=== PATIENT | female | born 1965 | race Caucasian/White ===

== ENCOUNTER 2020-05-06 08:21 | Outpatient (CLI) | payer BC ==
--- NOTE | 2020-05-06 10:48 | MMO ---
Left Breast MAMMO Unilat Diag DDI LT+SUSAN. CLINICAL HISTORY: Patient is 55 years old and is seen for diagnostic exam. The patient has the following family history of breast cancer: mother, at age 50. The patient has no personal history of cancer. VIEWS: The views performed were: left craniocaudal with tomosynthesis; left mediolateral oblique with tomosynthesis; and left mediolateral with tomosynthesis. FILMS COMPARED: The present examination has been compared to prior imaging studies performed at [facility] on 12/21/2011, at [facility] on 05/06/2020, and at [facility] on 10/06/2019 and 10/07/2019. This study has been interpreted with the assistance of computer-aided detection. MAMMOGRAM FINDINGS: The breast is extremely dense, which may lower the sensitivity of mammography. There is a mass measuring 5 millimeters seen in the upper region of the left breast. This is stable and probably benign. Two hypoechoic lesions were noted on prior ultrasound of left breast and interpreted as probably benign. Those lesions are stable on focused left US performed at this time. They are at the 12 and 1 o'clock positions respectively and do not definetely correlate with the mammographic finding. IMPRESSION: MASS IN THE LEFT BREAST IS PROBABLY BENIGN. FOLLOW-UP IN 6 MONTHS IS RECOMMENDED. THE RESULTS OF THIS EXAM WERE SENT TO THE PATIENT. ACR BI-RADS Category 3 - Probably benign finding - short interval follow-up suggested. [facility] will notify the patient of the need for additional imaging services. In six months, a focused left breast ultrasound and bilateral diagnostic mammogram. MAMMOGRAPHY NOTE: 1. A negative mammogram report should not delay a biopsy if a dominant of clinically suspicious mass is present. 2. Approximately 10% to 15% of breast cancers are not detected by mammography. 3. Adenosis and dense breasts may obscure an underlying neoplasm. Reported by: VINH MONROY MD Electonically Signed: [id number]
--- NOTE | 2020-05-06 12:58 | ULT ---
FOCUSED ULTRASOUND OF THE LEFT BREAST 05/06/2020. COMPARISON: 10/07/[address] [facility] in [place]. HISTORY: Reevaluate 2 hypoechoic probably benign lesions seen on outside imaging. FINDINGS: Focused ultrasound of the left breast at the 12 o'clock and 1 o'clock position performed. It is noted that the breast parenchyma is markedly dense. At the 1 o'clock position of the left [address] there is a hypoechoic parallel 4 x 9 mm lesion which does not appear significantly changed when co mpared to the prior exam. In addition, there is a vague area of decreased echogenicity which could r epresent an additional small solid mass at the 12 o'clock position. It is less conspicuous than on t he prior ultrasound. Of note, this is in an area of the breast where the patient reports a tiny nodu le has been present on self examination for years. This lesion measures approximately 5 x 4 mm. IMPRESSION: BIRADS 3: Probably benign findings. Two hypoechoic lesions are noted within the left breast as detai led above, which do not appear significantly changed when compared to the prior exam. The patient al so underwent a diagnostic mammogram on 05/06/2020 which demonstrates stability when compared to prior mammography performed 10/07/2019. Results of the study and recommendation for a followup ultrasound of the left breast as well as a felipe ateral diagnostic mammogram in 6 months discussed with the patient at the time of interpretation. CODE CR
== END 2020-05-06 08:22 | disposition home or self-care (01) ==
LOC: BICMAMMO 08:21
PROVIDERS: ATTEND Physician Assistant
DX: R92.8 Other abnormal and inconclusive findings on diagnostic imaging of breast (principal); N63.20 Unspecified lump in the left breast, unspecified quadrant; N64.9 Disorder of breast, unspecified
CPT/HCPCS: G0279

== ENCOUNTER 2020-10-27 14:40 | Outpatient (CLI) | payer BC ==
--- NOTE | 2020-10-27 15:45 | MMO ---
Bilateral MAMMO Bilat Diag DDI+SUSAN. CLINICAL HISTORY: Patient is 55 years old and is seen for follow-up at short-interval from prior study. The patient has the following family history of breast cancer: mother, at age 50. The patient has no personal history of cancer. VIEWS: The views performed were: bilateral craniocaudal with tomosynthesis; bilateral mediolateral oblique with tomosynthesis; and bilateral mediolateral with tomosynthesis. FILMS COMPARED: The present examination has been compared to prior imaging studies performed at [facility] on 05/06/2020 and 10/27/2020, and at [facility] on 10/07/2019. This study has been interpreted with the assistance of computer-aided detection. MAMMOGRAM FINDINGS: The breasts are extremely dense, which may lower the sensitivity of mammography. The 5mm left upper breast mass is stable and probably benign. The hypoechoic lesions on US of the left breast at 12:00 and 1:00 positions are stable and probably benign and do not definitely correlate with the mammographic finding. In the right breast, there are no suspicious masses, calcifications or areas of architectural distortion. IMPRESSION: FINDING IN THE LEFT BREAST IS PROBABLY BENIGN. FOLLOW-UP IN 6 MONTHS IS RECOMMENDED. THE RESULTS OF THIS EXAM WERE SENT TO THE PATIENT. ACR BI-RADS Category 3 - Probably benign finding - short interval follow-up suggested. [facility] will notify the patient of the need for additional imaging services. MAMMOGRAPHY NOTE: 1. A negative mammogram report should not delay a biopsy if a dominant of clinically suspicious mass is present. 2. Approximately 10% to 15% of breast cancers are not detected by mammography. 3. Adenosis and dense breasts may obscure an underlying neoplasm. Reported by: GISSEL PHILIPPE MD Electonically Signed: [id number]
--- NOTE | 2020-10-27 15:46 | ULT ---
LEFT BREAST ULTRASOUND: HISTORY: Six-month followup. FINDINGS: Comparison is made with ultrasound dated 05/06/2020. Correlation is made with mammograms from today a nd 05/06/2020. FINDINGS: The nonshadowing hypoechoic nodules at 12 and 1 o'clock positions respectively are again seen and are stable measuring 6 x 5 x 4 mm at the 12 o'clock position and 8 x 8 x 4 mm at the 1 o'clock position respectively. The ultrasound findings do not definitely correlate with the mammographic finding. IMPRESSION: BIRADS category 3 - probably benign findings. Six-month followup left diagnostic mammogram and ultra sound are recommended. POS: OFF
== END 2020-10-27 14:41 | disposition home or self-care (01) ==
LOC: BICMAMMO 14:40
PROVIDERS: ATTEND Physician Assistant
DX: R92.8 Other abnormal and inconclusive findings on diagnostic imaging of breast (principal)
CPT/HCPCS: 77066; G0279

== ENCOUNTER 2021-05-13 13:54 | Outpatient (CLI) | payer BC | END 2021-05-13 13:55 | disposition home or self-care (01) | LOC: BICMAMMO 13:54 | PROVIDERS: ATTEND Physician Assistant | DX: R92.8 Other abnormal and inconclusive findings on diagnostic imaging of breast (principal) | CPT/HCPCS: G0279 ==

== ENCOUNTER 2022-04-05 11:43 | Outpatient (CLI) | payer BC | END 2022-04-05 11:44 | disposition home or self-care (01) | LOC: BICMAMMO 11:43 | PROVIDERS: ATTEND Physician Assistant | DX: Z12.31 Encounter for screening mammogram for malignant neoplasm of breast (principal); Z80.3 Family history of malignant neoplasm of breast | CPT/HCPCS: 77063; 77067 ==